=== PATIENT | male | born 1945 | race Caucasian/White ===

== ENCOUNTER 2017-06-13 15:16 | Outpatient (CLI) | payer MEDICARE, OTHER ==
[2012-07-04 06:56] VITALS: BP 122/61
--- NOTE | 2017-06-14 11:05 | OP Clinic Progress Note ---
REASON FOR VISIT: This 72-year-old man actively describes pressure and discomfort overlying the right side of his face for approximately half a year. He points fairly clearly that most of the intensity is right at the edge of the nasal bone as it meets the maxillary buttress on the right side. The left side does not seem to bother him. He feels like there is something right inside. With a rhinoscope, I do not see evidence of a mass or tumor. He does have diffuse inflammation and edema. He is edentulous. He is tender overlying the ethmoid sinus on the right side in the medial aspect of the right orbit but not the left. He also is very tender over the right maxillary sinus with pressure and discomfort. Patient also describes thick, slimy, but not really discolored mucus coming out of his nose. He uses saline nasal sprays. He uses Afrin in order to be able to breathe. He has had problems with nasal Afrin dependency in the more distant past. 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 PLAN: Clinically, he has infection in the ethmoid and maxillary sinus areas on the right side, although I do not really just see polyps, mass, or a growth. There is marked edema on the right side as compared to the left side of the nasal passageways. Empirically, I have given him a Z-Nigel to take over the next 5 days. They are arranging for him to get a CT scan of the sinuses, and I will see him back in 1 week. cc: Dr. Eliot DAUGHERTY
== END 2017-06-13 15:17 ==
LOC: ENT 15:16
PROVIDERS: ATTEND Otolaryngology
DX: J32.2 Chronic ethmoidal sinusitis (principal); R60.9 Edema, unspecified
CPT/HCPCS: 31231; G0463

== ENCOUNTER 2017-06-18 09:44 | Outpatient (CLI) | payer MEDICARE, OTHER ==
[2012-07-04 06:56] VITALS: BP 122/61
--- NOTE | 2017-06-18 11:45 | Diagnostic Imaging Report ---
PIPE NOEL [facility] [address] [facility] [address] [address] Report Submission Date: Jun 18, 2017 10:18:40 AM CDT Patient Study Name: RAJINDER PALMER Date: Jun 18, 2017 9:53:40 AM CDT Modality Type: CT\SR Gender: M Description: CT MAXILLOFACIAL W/O D : 41 Institution: [facility] Physician: PIPE NOEL Examination: CT Maxillofacial History: Sinus pressure Comparison exams: None available Technique: Axial imaging with sagittal and coronal reconstruction. Findings: Maxillary, frontal, and sphenoid sinuses are clear. Mild ethmoid mucous thickening. Ostiomeatal units are patent bilaterally. No evidence for air -fluid level. Minimal septal deviation to the right. Remaining visualized osseous and soft tissue structure within normal limits. Streak artifact from dental hardware. Impression: Mild ethmoid sinus mucus thickening. No air fluid level. Electronically signed on Jun 18, 2017 10:18:40 AM CDT by: Dmitriy DAUGHERTY
== END 2017-06-18 09:45 ==
LOC: RAD 09:44
PROVIDERS: ATTEND Otolaryngology
DX: J32.9 Chronic sinusitis, unspecified (principal)
CPT/HCPCS: 70486

== ENCOUNTER 2017-06-20 13:06 | Outpatient (CLI) | payer MEDICARE, OTHER ==
[2012-07-04 06:56] VITALS: BP 122/61
--- NOTE | 2017-06-21 10:31 | OP Clinic Progress Note ---
REASON FOR VISIT: This 72-year-old man has had nasal airway obstruction and thick globular changes and gooey material coming out of his nostrils, more on the right side than on the left. There is a family history of sinonasal difficulties. He has a brother who had sinonasal surgery. His father also had sinonasal difficulties. He uses lots of Afrin, perhaps twice a day. He took azithromycin but he got GI upset with it, although he did feel like it mildly improved his sinonasal symptoms. I reviewed the CT with the patient. 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 Most of the sinuses are fairly clear. I am trying to get clearer answers as possible. The patient is more bothered by nasal airway obstruction. He has pressure and discomfort on the right lateral nasal bone. I have not been able to see a mass, tumor, or ulcerations. He cannot quite identify where it bothers him today with a Q-Tip. He does have some marked inflammation overlying both the inferior turbinate and the middle turbinate on the right side more than the left. Again, the patient is bothered mostly by airway obstruction and uses lots of Afrin and has pressure and discomfort. 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 PLAN: On an empiric basis, I have asked him to try some Diflucan for 10 days and I will see him back after that. I have offered him to see an traction power engineer and he has twice declined doing that. I went over sinonasal surgery as an option and the risks, problems, and no guarantees associated with that. The patient states that he at least understands his options. He will follow up in about 2 weeks. cc: Dr. Eliot DAUGHERTY
== END 2017-06-20 13:07 ==
LOC: ENT 13:06
PROVIDERS: ATTEND Otolaryngology
DX: J98.8 Other specified respiratory disorders (principal); J34.2 Deviated nasal septum
CPT/HCPCS: G0463

== ENCOUNTER 2017-07-04 10:47 | Outpatient (CLI) | payer MEDICARE, OTHER ==
[2012-07-04 06:56] VITALS: BP 122/61
[2017-07-04 12:23] LABS: BASOPHILS % 0.6 (0.0-1.5); EOSINOPHILS % 2.6 % (0.0-6.8); MEAN CORPUSCULAR HEMOGLOBIN 32.6 pg (28.0-34.0); MEAN CORPUSCULAR VOLUME 90.9 fl (80.0-100.0); MONOCYTES % 6.1 % (0.0-11.0); NEUTROPHILS # 4.1 # k/uL (1.4-7.7)
[2017-07-04 12:47] LABS: eGFR (African) > 60; eGFR (Non-African) > 60
--- NOTE | 2017-07-04 14:53 | OP Clinic Progress Note ---
REASON FOR VISIT: This 72-year-old man had marked nasal airway obstruction. It totally blocked his nose off at times. He has mouth breathing. He also has a significant amount of pressure, pain, and discomfort that is on the right side. It is up around the medial aspect of his right orbit. It also corresponds where he is most tender which is in the ethmoid area on that right side. Using a fiberoptic pediatric scope, he has fairly marked erythema and edema overlying the middle turbinate on that right side. Both anterior turbinates are quite hypertrophic and thickened. There is some septal spurs. PLAN: Clinically, the patient has pressure and discomfort overlying the right ethmoid more so than the left. He has thickening on the CT scan of the sinuses in the ethmoid areas. I pointed out to the patient that other things can cause his symptoms including, arteritis, neuritis, tumors, and different types of diseases. There is also a decent chance that the patient could be benefited with sinonasal surgery that would include a septoplasty, submucous resection of inferior turbinate tissue, ethmoidectomy, and possible antrostomy with some variability depending on the issues at the time of surgery. There is absolutely no guarantee of improvement of any or all of his symptoms and anything could get worse. Again, there could be other etiologies to this including intraorbital and intracranial. Patient states that he understands. I have gone over these issues with the patient previously and he also states that he understands that there is no guarantee of improvement and he is welcome to different otolaryngology opinions and seeing a neurologist and anyone else that he would choose to see. Allergy treatment could also be an option. The patient chooses to have surgery and would like to go forward in this regard. cc: Dr. Eliot DAUGHERTY
== END 2017-07-04 10:50 ==
LOC: ENT 10:47
PROVIDERS: ATTEND Otolaryngology
DX: J34.89 Other specified disorders of nose and nasal sinuses (principal)
CPT/HCPCS: 36415; 80053; 85025; 92511; G0463

== ENCOUNTER 2017-08-01 10:33 | Outpatient (CLI) | payer MEDICARE, OTHER ==
[2012-07-04 06:56] VITALS: BP 122/61
--- NOTE | 2017-08-02 08:35 | OP Clinic Progress Note ---
REASON FOR VISIT: Mr. Donahue is seen in follow up of his sinonasal surgery on July 16, 2017. Overall, the patient is clinically doing well and generally is improved though his history rambles to some degree. He has had zero problems of major significance. In general, it appears from his history that he is sleeping better. Additionally, some right periorbital headache and discomfort seems to be significantly improved. I cannot get a good handle from his history but it is certainly not a complaint any more. Using a flexible fiberoptic rhinoscopy, I looked down both nostrils. There was no nasal septal perforation. There were no polyps. There was no purulence. The nasal mucosa is still somewhat dry and scabby. PLAN: I am going to ask him to continue using the saline nasal spray. I will see him back in the first week of September. cc: Dr. Eliot DAUGHERTY
== END 2017-08-01 10:44 ==
LOC: ENT 10:33
PROVIDERS: ATTEND Otolaryngology
DX: Z09 Encounter for follow-up examination after completed treatment for conditions other than malignant neoplasm (principal); Z98.890 Other specified postprocedural states
CPT/HCPCS: G0463

== ENCOUNTER 2017-08-28 07:20 | Outpatient (CLI) | payer MEDICARE, OTHER ==
[2012-07-04 06:56] VITALS: BP 122/61
[2017-08-28 08:28] LABS: eGFR (African) > 60; eGFR (Non-African) > 60
== END 2017-08-28 07:21 ==
LOC: LAB 07:20
PROVIDERS: ATTEND Family Medicine
DX: I10 Essential (primary) hypertension (principal); Z12.5 Encounter for screening for malignant neoplasm of prostate; E78.5 Hyperlipidemia, unspecified
CPT/HCPCS: 36415; 80053; 80061; 84153; G0103

== ENCOUNTER 2017-09-05 11:10 | Outpatient (CLI) | payer MEDICARE, OTHER ==
[2012-07-04 06:56] VITALS: BP 122/61
--- NOTE | 2017-09-06 12:27 | OP Clinic Progress Note ---
BRIEF HISTORY: This patient is seen in follow up after sinonasal surgery on July 16, 2017. He has not had any complications regarding the surgery. In a way, he does not feel like he got much better at all from the surgery. After a little longer discussion, he is somewhat of a curmudgeon-like patient who still is very pleasant and realistic. He notes that he is able to breathe much more through his mouth. In fact, preoperatively, he always had his mouth open and was a mouth breather and during the entire visit, except when talking, his mouth was closed. I placed the adult-sized flexible fiberoptic laryngoscope through both nostrils and still a little bit more on the left side than on the right. He still seems to have some achiness around his right periorbital area but this seems to be somewhat less than it was before surgery. He describes no green or yellow or any type of colored secretions. It is always somewhat thick and sticky but always clear. This would certainly be more suggestive of an allergic type of rhinitis. There is also somewhat inflammatory and edematous nasal mucosa bilaterally about equal. No evident polyps. PLAN: I have recommended he take Benadryl on a periodic basis. The clinic nurse also observed and made a recommendation of taking Claritin, Diana, or the nonsedating antihistamines on a regular basis and p.r.n. Benadryl. On a trial basis, I gave him a low dose of a steroid at 5 mg a day for 1 week and then 5 mg every other day for another 2 weeks. I have pointed out that this would be on a trial basis. If he gets some degree of improvement, I would lean even more strongly toward the allergic rhinitis picture. The patient wanted to be very clear with me that he has no intentions of seeing an anthropology professor. Patient is also welcomed to come back on a p.r.n. basis. The patient, although is pleasant, is somewhat negative in his general attitude. He is at least moderately improved. Certainly if his issue does not resolve, seeing an anthropology professor would be my recommendation and paying attention to whether he gets improved with the short course of a low dose steroid, and using antihistamines on a more regular basis, rather than on a p.r.n. basis. WILLOW
== END 2017-09-05 11:11 ==
LOC: ENT 11:10
PROVIDERS: ATTEND Otolaryngology
DX: J30.9 Allergic rhinitis, unspecified (principal)
CPT/HCPCS: 31231; G0463

== ENCOUNTER 2018-02-04 11:28 | Outpatient (CLI) | payer MEDICARE, OTHER ==
[2012-07-04 06:56] VITALS: BP 122/61
[2018-02-04 11:56] LABS: BASOPHILS % 0.2 (0.0-1.5); EOSINOPHILS % 0.7 % (0.0-6.8); MEAN CORPUSCULAR HEMOGLOBIN 31.9 pg (28.0-34.0); MEAN CORPUSCULAR VOLUME 93.7 fl (80.0-100.0); MONOCYTES % 4.1 % (0.0-11.0); NEUTROPHILS # 9.9 # k/uL (1.4-7.7)
[2018-02-04 12:13] LABS: eGFR (African) > 60; eGFR (Non-African) > 60
--- NOTE | 2018-02-04 15:02 | Diagnostic Imaging Report ---
VIC MCFARLANE [facility] [place] [facility] [address] [facility] [address] [place], [place]. [address] Report Submission Date: Feb 04, 2018 1:03:24 PM CDT Patient Study Name: RAJINDER PALMER Date: Feb 04, 2018 12:29:07 PM CDT Modality Type: CT\SR Gender: M Description: CT ABD PELVIS W/ CON : 41 Institution: [facility] [place] [facility] Physician: VIC MCFARLANE Examination: CT Abdomen/pelvis History: PT C/O LLQ ABDOMEN PAIN. (Hx) Comparison exams: None available Technique: CT Abdomen/pelvis with IV protocol. Findings: Liver demonstrates diffuse low attenuation. No central lesion. Spleen , adrenals, pancreas, and kidneys are without gross irregularity. No abnormal enhancement. Surgical clips gallbladder fossa. No suspicious renal calcifications. Ureters are nondilated in their course through the abdomen and pelvis. No central calcification. Pelvic phleboliths. Bladder margin within normal limits. Abdominal aorta demonstrates peripheral atherosclerotic disease and mural thickening. No aneurysm. Cardiac silhouette is not enlarged. No pericardial effusion. Numerous prominent loops of small bowel with mucosal thickening and air-fluid levels. Stool/fluid within the large bowel limiting sensitivity. No free fluid. Surgical sutures in the region of the sigmoid colon. Osseous structures demonstrate degenerative changes. Lung bases demonstrates scarring without infiltrate. No effusion. Impression: Small bowel mucosal thickening with air-fluid levels - likely diffuse gastroenteritis. Correlate with any underlying medical conditions to exclude other possible inflammatory/infiltrative/ischemic etiologies. No acute upper abdominal organ inflammatory process. Fatty liver. No suspicious renal calcifications or abnormal ureteric dilation. Lung base scarring. No consolidation or effusion. Electronically signed on Feb 04, 2018 1:03:24 PM CDT by: Dmitriy DAUGHERTY
== END 2018-02-04 11:30 ==
LOC: RAD 11:28
PROVIDERS: ATTEND Family Medicine
DX: R10.32 Left lower quadrant pain (principal)
CPT/HCPCS: 36415; 74177; 80053; 83690; 85025; Q9967

== ENCOUNTER 2018-04-23 11:20 | Outpatient (CLI) | payer MEDICARE, OTHER ==
[2012-07-04 06:56] VITALS: BP 122/61
--- NOTE | 2018-04-23 13:50 | Diagnostic Imaging Report ---
VIC MCFARLANE [facility] [address] [facility].[address] [address] Report Submission Date: Apr 23, 2018 1:45:17 PM CDT Patient Study Name: RAJINDER PALMER Date: Apr 23, 2018 11:54:58 AM CDT Modality Type: US Gender: M Description: : 41 Institution: [facility] Physician: VIC MCFARLANE Ultrasound venous duplex right lower extremity History: Right lower extremity pain Duplex and color flow imaging was performed through the right lower extremity femoral popliteal venous system. The calf veins could not be identified. From the common femoral vein to the popliteal vein, there is normal compressibility and normal augmentation. No filling defects are identified. Impression: No evidence for deep venous thrombosis of right lower extremity. The calf veins could not be well visualized. Electronically signed on Apr 23, 2018 1:45:17 PM CDT by: Elida DAUGHERTY
== END 2018-04-23 11:25 ==
LOC: RAD 11:20
PROVIDERS: ATTEND Family Medicine
DX: I82.441 Acute embolism and thrombosis of right tibial vein (principal)
CPT/HCPCS: 93971

== ENCOUNTER 2018-09-04 07:53 | Outpatient (CLI) | payer MEDICARE, OTHER ==
[2012-07-04 06:56] VITALS: BP 122/61
[2018-09-04 08:39] LABS: eGFR (Non-African) > 60
== END 2018-09-04 07:55 ==
LOC: LAB 07:53
PROVIDERS: ATTEND Family Medicine
DX: I10 Essential (primary) hypertension (principal)
CPT/HCPCS: 36415; 80053; 80061

== ENCOUNTER 2019-08-25 07:31 | Outpatient (CLI) | payer MEDICARE, OTHER ==
[2012-07-04 06:56] VITALS: BP 122/61
[2019-08-25 08:25] LABS: HDL 62 mg/dL (>40); eGFR (Non-African) > 60
== END 2019-08-25 07:36 ==
LOC: LAB 07:31
PROVIDERS: ATTEND Family Medicine
DX: I10 Essential (primary) hypertension (principal)
CPT/HCPCS: 36415; 80053; 80061